=== PATIENT | male | born 1945 | race Caucasian/White ===

== ENCOUNTER 2018-03-13 01:34 | Inpatient (IN) | payer OTHER ==
[~2018-03-13] VITALS: Ht 175.3 cm; Wt 102.5 kg
[2018-03-13 01:39] VITALS: Ht 175.3 cm; Wt 102.5 kg
[2018-03-13 02:27] LABS: BASOPHIL % 1.6 % (0-2); PLATELET COUNT 158 x10^3mcL (130-400)
[2018-03-13 03:32] LABS: CARBON DIOXIDE 21.6 mmol/L (21-32); CHLORIDE SERUM 108 mmol/L (98-107); GLUCOSE SERUM 104 mg/dL (74-106); POTASSIUM SERUM 4.2 mmol/L (3.5-5.1); SODIUM SERUM 138 mmol/L (136-145)
[2018-03-13 03:33] LABS: ALKALINE PHOSPHATASE 107 U/L (46-116); ALT/SGPT 11 U/L (16-63); AST/SGOT 21 U/L (15-37); BILIRUBIN TOTAL 0.3 mg/dL (0.20-1.00); CALCIUM 8.4 mg/dL (8.5-10.1); CREATININE SERUM 0.9 mg/dL (0.7-1.3); T3 TOTAL 1.23 ng/mL; TOTAL PROTEIN, SERUM 6.4 g/dL (6.4-8.2)
[2018-03-13 03:34] LABS: CHOLESTEROL 152 mg/dL (<200); CHOLESTEROL/HDL RATIO 3.4; HDL CHOLESTEROL 45 mg/dL (40-60); LIPASE 204 IU/L (73-393); TRIGLYCERIDES 179 mg/dL (<150)
[2018-03-13 05:19] VITALS: BP 116/69
[2018-03-13 05:59] LABS: FREE THYROXINE INDEX 2.4 ug/dL (1.4-4.5); T4(THYROXINE) 7.4 ug/dL (4.7-13.3)
[2018-03-13 06:17] LABS: FREE T4 0.96 ng/dL (0.76-1.46)
[2018-03-13] MEDS ORDERED: SOTALOL HCL80 MG PO (08:41)
[2018-03-13 10:48] VITALS: BP 123/73
[2018-03-13 13:40] VITALS: BP 140/73
[2018-03-13 17:01] LABS: microscopic required? NO
[2018-03-13 17:10] LABS: urine erythrocyte NEGATIVE (NEGATIVE)
[2018-03-13 18:09] VITALS: BP 146/79
[2018-03-13 21:39] VITALS: BP 120/64
[2018-03-14 06:01] VITALS: BP 135/75
[2018-03-14 06:44] LABS: BASOPHIL % 0.6 % (0-2); PLATELET COUNT 132 x10^3mcL (130-400); RED CELL DISTRIBUTION WIDTH 13.7 % (11.5-14.5)
[2018-03-14 07:00] LABS: CALCIUM 8.7 mg/dL (8.5-10.1); CARBON DIOXIDE 28.5 mmol/L (21-32); CHLORIDE SERUM 106 mmol/L (98-107); CREATININE SERUM 0.9 mg/dL (0.7-1.3); GLUCOSE SERUM 97 mg/dL (74-106); POTASSIUM SERUM 5.1 mmol/L (3.5-5.1); SODIUM SERUM 141 mmol/L (136-145)
[2018-03-14 07:43] LABS: PHOSPHOROUS 3.6 mg/dL (2.5-4.9)
[2018-03-14 10:46] VITALS: BP 138/69
[2018-03-14] MEDS ORDERED: XARELTO15 M1 PO (13:19)
[2018-03-14] MEDS ORDERED: XARELTO10 M1 PO (13:20)
[2018-03-14 14:28] VITALS: BP 119/59
== END 2018-03-14 15:03 | disposition home or self-care (01) | DRG 176 ==
LOC: ED 01:34 → DU 04:23
PROVIDERS: Family Medicine; Specialist
DX: I26.99 Other pulmonary embolism without acute cor pulmonale (principal); E44.0 Moderate protein-calorie malnutrition; E03.9 Hypothyroidism, unspecified; I25.10 Atherosclerotic heart disease of native coronary artery without angina pectoris; Z68.33 Body mass index [BMI] 33.0-33.9, adult; Z86.711 Personal history of pulmonary embolism; Z85.828 Personal history of other malignant neoplasm of skin
CPT/HCPCS: 83880; 84439; J1644; J7030; Q0092; Q9967